=== PATIENT | female | born 1960 | race Caucasian/White ===

== ENCOUNTER 2018-05-20 11:41 | Emergency (ER) | payer OTHER ==
[~2018-05-20] VITALS: Ht 157.5 cm; Wt 63.5 kg
--- NOTE | 2018-05-20 11:50 | NUR ---
PT AMBULATED TO ER BED 02
[2018-05-20 11:55] VITALS: BP 143/91
[2018-05-20] MEDS ORDERED: KETOROLAC 60 MG/2 ML VIAL IM ONE (12:00)
--- NOTE | 2018-05-20 12:00 | NUR ---
C/O L WRIST PAIN X3 MONTHS. STATES SHE HAS SURGERY FOR CARPAL TUNNEL A FEW YEARS AGO. NO SWELLING, DEFORMITY, REDNESS/BRUISING NOTED, +2 RADIAL PULSE, <3 SEC CAP REFILL, DENIES NUMBNESS/TINGLING. DENIES N/V/D; SKIN IS PINK/WARM/DRY; AAOX4 WITH EVEN AND STEADY GAIT; LUNGS CLEAR BL; HR EVEN AND REGULAR; VSS; PATIENT POSITIONED FOR COMFORT; HOB ELEVATED; BEDRAILS UP X1; BED DOWN. ER MD MADE AWARE OF PT STATUS.
--- NOTE | 2018-05-20 13:58 | NUR ---
ER AT BEDSIDE
--- NOTE | 2018-05-20 14:09 | NUR ---
APPLIED SPLINT TO LEFT WRIST WIHTOUT ANY ISSUES
[2018-05-20 14:19] VITALS: BP 133/88
--- NOTE | 2018-05-20 14:20 | NUR ---
Patient discharged with v/s stable. Written and verbal after care instructions given and explained. Patient alert, oriented and verbalized understanding of instructions. Ambulatory with steady gait. All questions addressed prior to discharge. ID band removed. Patient advised to follow up with PMD. Rx of ZOFRAN,MOTRIN,NORCO given. Patient educated on indication of medication including possible reaction and side effects. Opportunity to ask questions provided and answered.
== END 2018-05-20 14:20 | disposition home or self-care (01) ==
LOC: MED 11:41
DX: M25.532 Pain in left wrist (principal); F17.200 Nicotine dependence, unspecified, uncomplicated
CPT/HCPCS: 29125; 96372; 99283; J1885